=== PATIENT | female | born 1995 | race African-American/Black ===

== ENCOUNTER 2016-08-31 15:25 | Emergency (ER) | payer SELFPAY ==
[~2016-08-31] VITALS: Ht 160 cm; Wt 52.0 kg
[2016-08-31] MEDS ORDERED: IBUPROFEN 800MG TABLET PO ONE (18:00)
[2016-08-31] MEDS ORDERED: CHLORHEXIDINE GLUCONATE 0.12% MOUTHWASH UDC SSP SCH (19:00)
[2016-08-31 19:40] VITALS: BP 113/73
== END 2016-08-31 19:52 | disposition home or self-care (01) ==
LOC: ER 15:30
DX: S09.8XXA Other specified injuries of head, initial encounter (principal); S90.31XA Contusion of right foot, initial encounter; R68.84 Jaw pain; V43.52XA Car driver injured in collision with other type car in traffic accident, initial encounter; Y93.89 Activity, other specified; Y92.414 Local residential or business street as the place of occurrence of the external cause
CPT/HCPCS: 70486; 73630; 81025; 99284